=== PATIENT | male | born 1980 | race African-American/Black ===

== ENCOUNTER 2018-03-08 19:08 | Inpatient (IN) | payer SELFPAY ==
[2018-03-08] MEDS: IPRATRPIUM/ALBUTEROL 0.5/2.5MG 3 ML NEBU. NEB (20:35)
[2018-03-08 21:03] LABS: ADD MAN DIFF? NO
[2018-03-08 21:06] LABS: BASO # 0.1 x10^3/uL (0.0-0.2); BASO % 1 % (0-3); EOS # 0.2 x10^3/uL (0.0-0.7); EOS % 3 % (0-3); HEMATOCRIT 42.6 % (39.0-53.0); HEMOGLOBIN 13.9 g/dL (13.0-17.5); LYMPH # 1.6 x10^3/uL (1.0-4.8); LYMPH % 20 % (24-48); MEAN CORPUSCULAR HEMOGLOBIN 27 pg (25-35); MEAN CORPUSCULAR HGB CONC 33 g/dL (31-37); MEAN CORPUSCULAR VOLUME 83 fL (79-100); MONO # 0.8 x10^3/uL (0.0-1.1); MONO % 9 % (0-9); NEUT # 5.6 x10^3uL (1.8-7.7); NEUT % 68 % (31-73); PLATELET COUNT 273 x10^3/uL (140-400); RED BLOOD COUNT 5.12 x10^6/uL (4.30-5.70); RED CELL DISTRIBUTION WIDTH 16.4 % (11.5-14.5); WHITE BLOOD COUNT 8.2 x10^3/uL (4.0-11.0)
[2018-03-08] MEDS: predniSONE 10 MG TABLET PO (21:11)
[2018-03-08 21:18] LABS: ANION GAP 7 (6-14); BLOOD UREA NITROGEN 14 mg/dL (8-26); BUN/CREATININE RATIO 14 (6-20); CALCIUM 9.3 mg/dL (8.5-10.1); CARBON DIOXIDE 26 mmol/L (21-32); CHLORIDE 101 mmol/L (98-107); GFR 102.9; GLUCOSE 374 mg/dL (70-99); POTASSIUM 4.3 mmol/L (3.5-5.1); SODIUM 134 mmol/L (136-145)
[2018-03-08 21:19] LABS: D-DIMER 0.32 ug/mlFEU (0.00-0.50)
[2018-03-08 21:26] LABS: ALBUMIN 3.4 g/dL (3.4-5.0); ALBUMIN/GLOBULIN RATIO 0.7 (1.0-1.7); ALK PHOS 93 U/L (46-116); ALT (SGPT) 48 U/L (16-63); AST (SGOT) 38 U/L (15-37); MAGNESIUM 1.9 mg/dL (1.8-2.4); TOTAL BILIRUBIN 1.2 mg/dL (0.2-1.0)
[2018-03-08 21:28] LABS: TROPONINI 0.075 ng/mL (0.000-0.055)
[2018-03-08 21:31] LABS: CKMB INDEX 2.9 % (0-4); CKMB MASS 6.4 ng/mL (0.0-3.6); CREATINE KINASE 217 U/L (39-308)
[2018-03-08 21:31] LABS: NT-PRO BNP 1251 pg/mL (0-124)
[2018-03-08] MEDS: hydroCHLOROthiazide 25 MG TABLET PO (21:59)
[2018-03-08 22:28] LABS: LACTIC ACID 1.4 mmol/L (0.4-2.0)
[2018-03-08] MEDS: LISINOPRIL 10 MG TABLET PO (22:33)
[2018-03-08] MEDS: ASPIRIN CHEWABLE 81 MG TABLET. PO (22:34)
[2018-03-08] MEDS: DOXYCYCLINE HYCLATE 100 MG TABLET PO (22:35)
[2018-03-08] MEDS: FUROSEMIDE 20 MG/2 ML VIAL. IVP (22:38)
[2018-03-08] MEDS: NITROGLYCERIN OINT 1 GM PACKET. TP (22:40)
[2018-03-09 01:44] LABS: TROPONINI 0.054 ng/mL (0.000-0.055)
[2018-03-09 06:02] LABS: BASO # 0.1 x10^3/uL (0.0-0.2); BASO % 1 % (0-3); EOS % 0 % (0-3); HEMATOCRIT 41.7 % (39.0-53.0); HEMOGLOBIN 13.8 g/dL (13.0-17.5); LYMPH # 0.6 x10^3/uL (1.0-4.8); LYMPH % 7 % (24-48); MEAN CORPUSCULAR HEMOGLOBIN 28 pg (25-35); MEAN CORPUSCULAR HGB CONC 33 g/dL (31-37); MEAN CORPUSCULAR VOLUME 83 fL (79-100); MONO # 0.3 x10^3/uL (0.0-1.1); MONO % 4 % (0-9); NEUT # 7.4 x10^3uL (1.8-7.7); NEUT % 88 % (31-73); PLATELET COUNT 275 x10^3/uL (140-400); RED BLOOD COUNT 5.03 x10^6/uL (4.30-5.70); RED CELL DISTRIBUTION WIDTH 16.1 % (11.5-14.5); WHITE BLOOD COUNT 8.3 x10^3/uL (4.0-11.0)
[2018-03-09 06:19] LABS: ADD MAN DIFF? YES
[2018-03-09 06:23] LABS: ALBUMIN 3.4 g/dL (3.4-5.0); ALBUMIN/GLOBULIN RATIO 0.8 (1.0-1.7); ALK PHOS 99 U/L (46-116); ALT (SGPT) 51 U/L (16-63); ANION GAP 9 (6-14); AST (SGOT) 25 U/L (15-37); BLOOD UREA NITROGEN 14 mg/dL (8-26); BUN/CREATININE RATIO 12 (6-20); CALCIUM 9.3 mg/dL (8.5-10.1); CARBON DIOXIDE 27 mmol/L (21-32); CHLORIDE 99 mmol/L (98-107); CREATININE 1.2 mg/dL (0.7-1.3); GFR 83.4; GLUCOSE 407 mg/dL (70-99); POTASSIUM 3.9 mmol/L (3.5-5.1); SODIUM 135 mmol/L (136-145); TOTAL BILIRUBIN 1.4 mg/dL (0.2-1.0); TOTAL PROTEIN 7.9 g/dL (6.4-8.2)
[2018-03-09 06:25] LABS: TROPONINI 0.037 ng/mL (0.000-0.055)
[2018-03-09 07:44] LABS: POC GLUCOSE 380 mg/dL (70-99)
[2018-03-09] MEDS ORDERED: DEXTROSE 50% 25 GM / 50ML DISP.SYRIN. IV ×2 (08:30→11:00)
[2018-03-09] MEDS: glipiZIDE 5 MG TABLET PO ×2 (09:00→11:45)
[2018-03-09] MEDS ORDERED: amLODIPine BESYLATE 5 MG TABLET PO (10:15)
[2018-03-09] MEDS ORDERED: ACETAMINOPHEN 325 MG TABLET. PO (11:00)
[2018-03-09] MEDS ORDERED: DOCUSATE SODIUM 100 MG CAPSULE. PO (11:00)
[2018-03-09] MEDS ORDERED: ONDANSETRON PF 4 MG/2 ML VIAL. IV (11:00)
[2018-03-09] MEDS ORDERED: hydrALAZINE 20 MG/ML VIAL. IVP (11:00)
[2018-03-09 11:03] LABS: % BASOS 1 % (0-3); % LYMPHS 5 % (24-48); % MONOS 4 % (0-10); % SEGS 90 % (35-66)
[2018-03-09 11:04] LABS: PLT ESTIMATE ADEQUATE (ADEQUATE)
[2018-03-09 11:14] LABS: CHOLESTEROL 152 mg/dL (0-200); CHOLESTEROL/HDL RATIO 4.6; HDLC 33 mg/dL (40-60); LDLC 107 mg/dL (0-100); NON-HDL CHOLESTEROL 119 mg/dL (0-129); TRIGLYCERIDES 60 mg/dL (0-150); VLDLC 12 mg/dL (0-40)
[2018-03-09 11:34] LABS: THYROID STIM HORMONE (TSH) 0.933 uIU/mL (0.358-3.74)
[2018-03-09] MEDS: LISINOPRIL 20 MG TABLET PO (11:45)
[2018-03-09] MEDS: CARVEDILOL 12.5 MG TABLET. PO ×2 (11:45→17:17)
[2018-03-09] MEDS: hydroCHLOROthiazide 25 MG TABLET PO (11:46)
[2018-03-09 11:47] LABS: POC GLUCOSE 327 mg/dL (70-99)
[2018-03-09] MEDS ORDERED: INSULIN LISPRO 300 UNITS/3 ML INSULN.PEN. SQ (12:00)
[2018-03-09] MEDS ORDERED: ALBUTEROL SULFATE 2.5 MG/3 ML NEBU. NEB (12:45)
[2018-03-09] MEDS ORDERED: GLIMEPIRIDE PO (14:00)
[2018-03-09] MEDS: DOXYCYCLINE HYCLATE 100 MG TABLET PO ×2 (14:16→21:04)
[2018-03-09] MEDS: ENOXAPARIN 40 MG/0.4 ML SYRINGE. SQ ×2 (14:21→21:04)
[2018-03-09] MEDS: LABETALOL 20 MG/4 ML DISP.SYRIN. IVP (14:24)
[2018-03-09 14:26] LABS: POC GLUCOSE 382 mg/dL (70-99)
[2018-03-09] MEDS: INSULIN LISPRO 300 UNITS/3 ML INSULN.PEN. SQ ×2 (14:56→17:33)
[2018-03-09 16:47] LABS: POC GLUCOSE 423 mg/dL (70-99)
[2018-03-09] MEDS: glyBURIDE 5 MG TABLET PO (17:17)
[2018-03-09 20:56] LABS: POC GLUCOSE 256 mg/dL (70-99)
[2018-03-09] MEDS: LACTOBACILLUS RHAMNOSUS GG 1 CAPSULE. PO (21:04)
[2018-03-09] MEDS: INSULIN GLARGINE 300 UNITS/3 ML INSULN.PEN. SQ (21:27)
[2018-03-10 03:56] LABS: ADD MAN DIFF? NO
[2018-03-10 04:01] LABS: BASO # 0.1 x10^3/uL (0.0-0.2); BASO % 1 % (0-3); EOS # 0.2 x10^3/uL (0.0-0.7); EOS % 2 % (0-3); LYMPH # 1.7 x10^3/uL (1.0-4.8); LYMPH % 22 % (24-48); MEAN CORPUSCULAR HEMOGLOBIN 28 pg (25-35); MEAN CORPUSCULAR HGB CONC 33 g/dL (31-37); MEAN CORPUSCULAR VOLUME 84 fL (79-100); MONO # 0.8 x10^3/uL (0.0-1.1); MONO % 11 % (0-9); NEUT % 64 % (31-73); PLATELET COUNT 241 x10^3/uL (140-400); RED BLOOD COUNT 4.67 x10^6/uL (4.30-5.70); RED CELL DISTRIBUTION WIDTH 16.2 % (11.5-14.5); WHITE BLOOD COUNT 7.8 x10^3/uL (4.0-11.0)
[2018-03-10 04:16] LABS: ANION GAP 5 (6-14); BLOOD UREA NITROGEN 19 mg/dL (8-26); CALCIUM 8.9 mg/dL (8.5-10.1); CARBON DIOXIDE 30 mmol/L (21-32); CHLORIDE 102 mmol/L (98-107); GFR 102.9; GLUCOSE 202 mg/dL (70-99); POTASSIUM 3.2 mmol/L (3.5-5.1); SODIUM 137 mmol/L (136-145)
[2018-03-10 04:40] LABS: POC GLUCOSE 191 mg/dL (70-99)
[2018-03-10] MEDS: INSULIN LISPRO 300 UNITS/3 ML INSULN.PEN. SQ ×6 (08:00→18:10)
[2018-03-10 08:08] LABS: POC GLUCOSE 192 mg/dL (70-99)
[2018-03-10] MEDS: hydroCHLOROthiazide 25 MG TABLET PO (09:14)
[2018-03-10] MEDS: DOXYCYCLINE HYCLATE 100 MG TABLET PO (09:14)
[2018-03-10] MEDS: LISINOPRIL 20 MG TABLET PO (09:15)
[2018-03-10] MEDS: CARVEDILOL 12.5 MG TABLET. PO ×2 (09:15→17:58)
[2018-03-10] MEDS: FUROSEMIDE 20 MG TABLET PO (09:16)
[2018-03-10] MEDS: ENOXAPARIN 40 MG/0.4 ML SYRINGE. SQ (09:16)
[2018-03-10] MEDS: glyBURIDE 5 MG TABLET PO ×3 (09:16→17:58)
[2018-03-10] MEDS: POTASSIUM CHLORIDE 20 MEQ TABLET.ER. PO (09:16)
[2018-03-10] MEDS: LACTOBACILLUS RHAMNOSUS GG 1 CAPSULE. PO (09:16)
[2018-03-10 11:31] LABS: HEMOGLOBIN A1C 11.8 % (4.8-5.6)
[2018-03-10 11:52] LABS: POC GLUCOSE 242 mg/dL (70-99)
[2018-03-10] MEDS: FUROSEMIDE 40 MG TABLET. PO (12:35)
[2018-03-10] MEDS: POTASSIUM CHLORIDE 10 MEQ TABLET.ER. PO (16:18)
[2018-03-10] MEDS: ASPIRIN ENTERIC COATED 81 MG TABLET.DR. PO (16:18)
[2018-03-10 18:11] LABS: POC GLUCOSE 160 mg/dL (70-99)
[2018-03-10] MEDS ORDERED: ATORVASTATIN CALCIUM 10 MG TABLET. PO (21:00)
[2018-03-11] MEDS ORDERED: FUROSEMIDE 40 MG TABLET. PO (09:00)
== END 2018-03-10 18:00 | disposition home or self-care (01) | DRG 304 ==
LOC: ER 19:08 → 2 SOUTH 21:51
DX: I16.0 Hypertensive urgency (principal); I50.43 Acute on chronic combined systolic (congestive) and diastolic (congestive) heart failure; Z68.42 Body mass index [BMI] 45.0-49.9, adult; E66.2 Morbid (severe) obesity with alveolar hypoventilation; I42.9 Cardiomyopathy, unspecified; R65.10 Systemic inflammatory response syndrome (SIRS) of non-infectious origin without acute organ dysfunction; Z68.43 Body mass index [BMI] 50.0-59.9, adult; K52.1 Toxic gastroenteritis and colitis; J20.9 Acute bronchitis, unspecified; E11.40 Type 2 diabetes mellitus with diabetic neuropathy, unspecified; E11.65 Type 2 diabetes mellitus with hyperglycemia; E78.5 Hyperlipidemia, unspecified; I15.8 Other secondary hypertension; J45.909 Unspecified asthma, uncomplicated; Z82.49 Family history of ischemic heart disease and other diseases of the circulatory system; Z91.19 Patient's noncompliance with other medical treatment and regimen; M19.90 Unspecified osteoarthritis, unspecified site; Z88.5 Allergy status to narcotic agent; Z88.0 Allergy status to penicillin; Z88.8 Allergy status to other drugs, medicaments and biological substances; I11.0 Hypertensive heart disease with heart failure
CPT/HCPCS: 36415; 71046; 80048; 80053; 80061; 82553; 82962; 83036; 83605; 83735; 83880; 84443; 84484; 85007; 85025; 85379; 87040; 93005; 93306; 94640; 96374; 99285; 99285-25; J1650; J1815; J3490; J7512; J7620

== ENCOUNTER 2019-09-01 12:21 | Emergency (ER) | payer SELFPAY ==
[~2019-09-01] VITALS: Ht 180.3 cm; Wt 178.1 kg
[~2019-09-01 12:21] MED LIST: ASPI-612 PO; ATOR10TA60 PO; CARV25TA PO; DOXY100T PO; FURO40TA4 PO; GLIM1TAB7 PO; GLIP5TAB10 PO; GLYB5TAB3 PO; HYDR-2145 PO; INSU100I11 SQ; INSU100I13 SQ; LISI-130 PO; POTA10TA12 PO
[2019-09-01 12:56] VITALS: BP 173/102
[2019-09-01] MEDS ORDERED: DIPHTH,PERTUSS(ACELL),TET TOX 0.5 ML DISP.SYRIN. VAX IM ONE (13:30)
[2019-09-01] MEDS ORDERED: SMZ/TMP 800/160MG TABLET. PO ONE (13:30)
[2019-09-01] MEDS ORDERED: SULF1TAB24 PO (14:09)
--- NOTE | 2019-09-01 14:09 | PHYS DOC ---
Past Medical History Past Medical History: CHF, Diabetes-Type II, Hypertension Additional Past Medical Histor: NEUROPATHY Past Surgical History: No Surgical History Alcohol Use: None Drug Use: None Adult General Chief Complaint Chief Complaint: ABSCESS HPI HPI Patient is a 39 year old male with history of diabetes type 2, hypertension, who presents to the ED today complaining of an abscess on the right inner thigh that he noted a couple days ago. Review of Systems Review of Systems Constitutional: Denies fever or chills [] : Denies dysuria or hematuria [] Musculoskeletal: Denies back pain or joint pain [] Integument: Abscess to the right inner thigh Neurologic: Denies headache, focal weakness or sensory changes [] All other systems were reviewed and found to be within normal limits, except as documented in this note. Current Medications Current Medications Current Medications Medications (Trade) Dose Ordered Sig/Jfee Start Time Stop Time Status Last Admin Dose Admin Diphtheria/ Tetanus/Acell Pertussis (Boostrix) 0.5 ml ONCE ONCE 09/01/19 13:30 09/01/19 13:31 DC 09/01/19 13:33 0.5 ML Trimethoprim/ Sulfamethoxazole (Bactrim Ds) 1 tab 1X ONCE 09/01/19 13:30 09/01/19 13:31 DC 09/01/19 13:31 1 TAB Allergies Allergies Allergies Coded Allergies Type Severity Reaction Last Updated Verified Penicillins Allergy Intermediate 03/08/18 Yes diphenhydramine Allergy Intermediate 03/08/18 Yes loratadine Allergy Intermediate 03/08/18 Yes morphine Allergy Intermediate 03/08/18 Yes Physical Exam Physical Exam Constitutional: Well developed, well nourished, no acute distress, non-toxic appearance. [] Abdomen: Bowel sounds normal, soft, no tenderness, no masses, no pulsatile masses. [] Skin: Morbidly obese patient, right inner thigh with 4 indurated areas with erythema, no fluctuance consistent with infected hidradenitis supra- Back: No tenderness, no CVA tenderness. [] Extremities: No tenderness, no cyanosis, no clubbing, ROM intact, no edema. [] Neurologic: Alert and oriented X 3, normal motor function, normal sensory function, no focal deficits noted. [] Psychologic: Affect normal, judgement normal, mood normal. [] Current Patient Data Vital Signs Vital Signs Date Time Temp Pulse Resp B/P (MAP) Pulse Ox O2 Delivery O2 Flow Rate FiO2 09/01/19 12:56 98.3 97 18 173/102 (125) 97 Room Air 98.3 EKG EKG [] Radiology/Procedures Radiology/Procedures [] Course & Med Decision Making Course & Med Decision Making Pertinent Labs and Imaging studies reviewed. (See chart for details) This is a 39-year-old male patient presented to the ED today with what appears to be infected adenitis to the right groin region. Discharged on Bactrim. Tetanus updated. Provided instructions to follow-up with the general surgeon. Kristopher Disclaimer Kristopher Disclaimer This electronic medical record was generated, in whole or in part, using a voice recognition dictation system. Departure Departure Impression: Primary Impression: Hidradenitis suppurativa Disposition: 01 HOME, SELF-CARE Condition: STABLE Referrals: BABAR GARCIA (PCP) follow up in 1-2 weeks LEXIS LEWIS MD follow up in 1-2 weeks Patient Instructions: Hidradenitis Suppurativa, Sweat Gland Abscess Additional Instructions: You were evaluated in the emergency room for infection in your right inner groin. Use the prescribed medications as ordered. Follow-up with your own doctor in the provided general surgeon in one to 2 weeks Scripts Sulfamethoxazole/Trimethoprim (BACTRIM DS TABLET) 1 Each Tablet 1 TAB PO BID for 10 Days, #20 TAB 0 Refills Prov: YULIYA HANDLEY APRN 09/01/19 YULIYA HANDLEY APRN Sep 01, 2019 14:09
== END 2019-09-01 14:28 | disposition home or self-care (01) ==
LOC: ER 12:21
DX: L73.2 Hidradenitis suppurativa (principal); L02.415 Cutaneous abscess of right lower limb; L53.9 Erythematous condition, unspecified; I50.9 Heart failure, unspecified; E11.40 Type 2 diabetes mellitus with diabetic neuropathy, unspecified; I10 Essential (primary) hypertension; Z88.0 Allergy status to penicillin; Z88.6 Allergy status to analgesic agent; Z88.8 Allergy status to other drugs, medicaments and biological substances
CPT/HCPCS: 90471; 90715; 99283